=== PATIENT | male | born 1995 | race Caucasian/White ===

== ENCOUNTER → 2023-03-24 15:43 | Outpatient (CLI) | payer OTHER, SELFPAY ==
--- NOTE | 2023-03-24 | DI.US.S_ITS ---
PROCEDURE: US ABDOMEN LIMITED INDICATIONS: Unspecified viral hepatitis C TECHNIQUE: Real-time scanning was performed of the abdominal and retroperitoneal organs, with image documentation. COMPARISON: None. FINDINGS: Liver: The liver measures 18.8 cm in length and demonstrates increased echogenicity. Probable focal fatty sparing is present adjacent to the gallbladder. However, this is poorly characterized given body habitus and coarse hepatic echotexture. Gallbladder: The gallbladder wall measures 2.1 mm in diameter. No stones, sludge, pericholecystic fluid, or sonographic Sunshine sign. Biliary ducts: Intrahepatic bile ducts are non-dilated. Extrahepatic bile duct caliber measures 4.1 mm. Normal is 6-7 mm or less in diameter, or 10 mm or less post-cholecystectomy. Pancreas: Visualized portions of the pancreas are sonographically normal. Spleen: Spleen is normal in size and homogeneous in echotexture. IMPRESSION: 1. Increased hepatic echotexture suggesting cirrhotic transformation, although hepatic steatosis could also cause this appearance. 2. Hypoechoic focus near the gallbladder fundus which may represent focal fatty sparing; however in the setting of hepatitis C, neoplasm cannot be excluded and further characterization is recommended with multiphase hepatic mass protocol MRI or CT. Dictated by: Keisha Last M.D. on 03/24/2023 at 17:08 Approved by: Keisha Last M.D. on 03/24/2023 at 17:10
== END ==
PROVIDERS: PCP Family Medicine; Referring Provider Internal Medicine Gastroenterology; Visit Provider Internal Medicine Gastroenterology
DX: B19.20 Unspecified viral hepatitis C without hepatic coma (principal); R79.89 Other specified abnormal findings of blood chemistry
CPT/HCPCS: 76705